=== PATIENT | female | born 1995 | race Two or more races ===

== ENCOUNTER 2018-09-09 11:25 | Emergency (ER) | payer BC ==
[2018-09-09 11:40] VITALS: BP 132/64
[2018-09-09 11:56] LABS: BILIRUBIN,URINE NEGATIVE (NEGATIVE); GLUCOSE, URINE (UA) NEGATIVE (NEGATIVE); KETONES,URINE (UA) NEGATIVE (NEGATIVE); LEUKOCYTE ESTERASE, URINE TRACE (NEGATIVE); NITRITE,URINE NEGATIVE (NEGATIVE); OCCULT BLOOD,URINE SMALL (NEGATIVE); PROTEIN,URINE NEGATIVE (NEGATIVE); UROBILINOGEN,URINE 0.2 (NORMAL) E.U./dL (NORMAL)
[2018-09-09 12:00] LABS: CLARITY,URINE CLEAR (CLEAR); HCG UR QUAL NEGATIVE
[2018-09-09 12:23] LABS: RBC,URINE 0-5 /HPF (0-5)
[2018-09-09] MEDS ORDERED: NITROFURANTOIN MACRO 100 MG CAPSULE PO STA (12:23)
[2018-09-09] MEDS ORDERED: PHENAZOPYRIDINE 100 MG TABLET PO STA (12:23)
[2018-09-09 12:24] LABS: BACTERIA,URINE Rare /HPF (None Seen); SQUAMOUS EPITHELIAL CELL,UR FEW Squamous (<= Few)
--- NOTE | 2018-09-09 12:26 | ED Physician Documentation ---
History of Present Illness - Stated complaint Stated Complaint: FEM - Chief complaint Chief Complaint: UTI - History obtained from History obtained from: Patient - History of Present Illness Timing: Today Pain level max: 4 Pain level now: 3 - Additonal information Additional information: 23-year-old female with dysuria, urinary frequency and low back pain. Started today. Feels similar to prior UTIs. Has not taken anything for this today. Worse with urination. Nothing makes it better. Patient is not , breast- feeding or trying to become . Review of Systems Constitutional: reports: Chills. denies: Fever Cardiac: denies: Chest pain / pressure Respiratory: denies: Cough GI: denies: Nausea, Vomiting, Diarrhea Skin: denies: Rash Musculoskeletal: denies: Neck pain, Back pain Neurologic: denies: Headache PD PAST MEDICAL HISTORY - Past Medical History Past Medical History: No - Past Surgical History Past Surgical History: No - Present Medications Home Medications: Ambulatory Orders Medication Instructions Recorded Confirmed Nitrofurantoin Monohyd/M-Cryst 100 mg PO BID #10 capsule 09/09/18 [Macrobid 100 mg Capsule] Phenazopyridine HCl [Pyridium] 200 mg PO TID PRN #6 tablet 09/09/18 - Allergies Allergies/Adverse Reactions: Allergies Allergy/AdvReac Type Severity Reaction Status Date / Time No Known Drug Allergies Allergy Verified 09/09/18 11:37 - Living Situation Living Situation: reports: With family Living Arrangement: reports: At home - Social History Does the pt smoke?: No Does the pt drink ETOH?: No Does the pt have substance abuse?: No - Family History Family history: reports: Non contributory PD ED PE NORMAL - Vitals Vital signs reviewed: Yes - General General: Alert and oriented X 3, No acute distress - HEENT HEENT: Moist mucous membranes - Neck Neck: Supple, no meningeal sign - Cardiac Cardiac: RRR - Respiratory Respiratory: No respiratory distress, Clear bilaterally - Abdomen Abdomen: Soft, Non tender, Non distended - Back Back: No CVA TTP - Derm Derm: Warm and dry - Neuro Neuro: Alert and oriented X 3 - Psych Psych: Normal mood, Normal affect Results - Vitals Vitals: Vital Signs - 24 hr 09/09/18 11:37 Temperature 36.7 C Heart Rate 70 Respiratory 15 Rate Blood Pressure 132/64 H O2 Saturation 100 Oxygen O2 Source Room air - Labs Labs: Laboratory Tests 09/09/18 11:49 Urine Color YELLOW Urine Clarity CLEAR Urine pH 7.0 Ur Specific [place] <=1.005 Urine Protein NEGATIVE Urine Glucose (UA) NEGATIVE Urine Ketones NEGATIVE Urine Occult Blood SMALL H Urine Nitrite NEGATIVE Urine Bilirubin NEGATIVE Urine Urobilinogen 0.2 (NORMAL) Ur Leukocyte Esterase TRACE H Urine RBC 0-5 Urine WBC 6-10 H Ur Squamous Epith Cells FEW Squamous Urine Bacteria Rare Ur Microscopic Review INDICATED Urine Culture Comments INDICATED Urine HCG, Qual NEGATIVE PD MEDICAL DECISION MAKING - ED course Complexity details: reviewed results, re-evaluated patient, considered differential, d/w patient ED course: 23-year-old female with a UTI. Will place on Macrobid. She is well-appearing, nontoxic. Afebrile. No pyelonephritis. No sepsis. Patient counseled regarding signs and symptoms for which I believe and urgent re-evaluation would be necessary. Patient with good understanding of and agreement to plan and is comfortable going home at this time This document was made in part using voice recognition software. While efforts are made to proofread this document, sound alike and grammatical errors may occur. Departure - Departure Disposition: Home, Self Care Clinical Impression: Urinary tract infection Qualifiers: Urinary tract infection type: acute cystitis Hematuria presence: without hematuria Qualified Code(s): N30.00 - Acute cystitis without hematuria Condition: Good Instructions: ED UTI Cystitis Female Follow-Up: your,doctor in 1 week if not better [Other] Prescriptions: Nitrofurantoin Monohyd/M-Cryst [Macrobid 100 mg Capsule] 100 mg PO BID #10 capsule Phenazopyridine HCl [Pyridium] 200 mg PO TID PRN #6 tablet PRN Reason: dysuria Comments: Take all antibiotics until gone. Return if you worsen. Follow-up with your doctor if you are not improved.
== END 2018-09-09 12:41 | disposition home or self-care (01) ==
LOC: ED 11:25
DX: N30.00 Acute cystitis without hematuria (principal)
CPT/HCPCS: 81001; 81025; 87086; 99283; 99284; A9270; 81003

== ENCOUNTER 2019-12-26 15:12 | Emergency (ER) | payer BC, OTHER ==
[2019-12-26] MEDS ORDERED: PROPARACAINE 0.5% OPHTH DROPS 15 ML EACHEYE STA (15:24)
--- NOTE | 2019-12-26 15:38 | ED Physician Documentation ---
PD HPI OPHTHO - Stated complaint Stated Complaint: LT EYE PX - Chief complaint Chief Complaint: Heent - History obtained from History obtained from: Patient - Additional information Additional information: Clipping her toenails about an hour ago and felt like a piece went into the eye lower down on the left. No visual deficit. She thinks she got it out. Review of Systems Constitutional: denies: Fever, Chills Eyes: reports: Photophobia (mild). denies: Loss of vision, Decreased vision Nose: denies: Rhinorrhea / runny nose PD PAST MEDICAL HISTORY - Past Medical History Past Medical History: No - Past Surgical History Past Surgical History: No - Present Medications Home Medications: Ambulatory Orders Medication Instructions Recorded Confirmed Nitrofurantoin Monohyd/M-Cryst 100 mg PO BID #10 capsule 09/09/18 [Macrobid 100 mg Capsule] Phenazopyridine HCl [Pyridium] 200 mg PO TID PRN #6 tablet 09/09/18 Erythromycin Base [Erythromycin 1 appful OP 5XD 7 Days #1 oint...g. 12/26/19 Ophthalmic Ointment] - Allergies Allergies/Adverse Reactions: Allergies Allergy/AdvReac Type Severity Reaction Status Date / Time No Known Drug Allergies Allergy Verified 12/26/19 15:17 - Social History Does the pt smoke?: No Smoking Status: Never smoker Does the pt drink ETOH?: No Does the pt have substance abuse?: No - Immunizations Immunizations are current?: Yes PD ED PE NORMAL - Vitals Vital signs reviewed: Yes - General General: Alert and oriented X 3, No acute distress, Well developed/nourished - HEENT HEENT: PERRL, EOMI, Other (No obvious foreign body, no fluorescein uptake) - Neuro Neuro: Alert and oriented X 3, Normal speech Results - Vitals Vitals: Vital Signs - 24 hr 12/26/19 15:17 Temperature 36.8 C Heart Rate 80 Respiratory 19 Rate Blood Pressure 120/66 O2 Saturation 100 Oxygen O2 Source Room air Departure - Departure Disposition: 01 Home, Self Care Clinical Impression: Eye foreign body Qualifiers: Encounter type: initial encounter Laterality: left Qualified Code(s): T15.92XA - Foreign body on external eye, part unspecified, left eye, initial encounter Condition: Good Record reviewed to determine appropriate education?: Yes Instructions: ED Eye Particle Conjunctiva FB Rslv Follow-Up: Ivan Collins MD [Provider Admit Priv/Credential] - Prescriptions: Erythromycin Base [Erythromycin Ophthalmic Ointment] 1 appful OP 5XD 7 Days #1 oint...g. Comments: Symptoms should be completely gone quickly, return or follow-up with an eye doctor if not.
[2019-12-26 15:48] VITALS: BP 114/64
== END 2019-12-26 15:50 | disposition home or self-care (01) ==
LOC: ED 15:12
DX: T15.92XA Foreign body on external eye, part unspecified, left eye, initial encounter (principal); X58.XXXA Exposure to other specified factors, initial encounter; Y93.E8 Activity, other personal hygiene
CPT/HCPCS: 99282; 99283; J3490

== ENCOUNTER 2020-01-13 19:22 | Emergency (ER) | payer OTHER ==
--- NOTE | 2020-01-13 19:47 | ED Physician Documentation ---
PD HPI CHEST PAIN - Stated complaint Stated Complaint: CP,DIZZY,RODRIGUEZ - Chief complaint Chief Complaint: Cardiac - History obtained from History obtained from: Patient - Additional information Additional information: 24-year-old woman has a history of chest pain issues, actually had a negative stress test about 3 years ago. She has been diagnosed with an arrhythmia but she does not know the details of the type but was led to believe that it was benign. She was eating tonight and developed tinnitus in both ears followed by vertigo, followed by sharp left upper anterior chest pain nonradiating with very mild shortness of breath. No pedal edema or calf pain. She is not on control. No recent travel. No cough. No fever. Review of Systems Ten Systems: 10 systems reviewed and negative Constitutional: denies: Fever, Chills, Fatigue Cardiac: denies: Pedal edema, Calf pain Respiratory: denies: Hemoptysis, Wheezing PD PAST MEDICAL HISTORY - Past Surgical History Past Surgical History: No - Present Medications Home Medications: Ambulatory Orders Medication Instructions Recorded Confirmed Multivitamin [Multivitamins] 1 tab PO DAILY 01/13/20 01/13/20 Omeprazole 20 mg PO DAILY 01/13/20 01/13/20 - Allergies Allergies/Adverse Reactions: Allergies Allergy/AdvReac Type Severity Reaction Status Date / Time No Known Drug Allergies Allergy Verified 01/13/20 19:27 - Social History Does the pt smoke?: No Smoking Status: Never smoker Does the pt drink ETOH?: No Does the pt have substance abuse?: No - Immunizations Immunizations are current?: Yes PD ED PE NORMAL - Vitals Vital signs reviewed: Yes - General General: Alert and oriented X 3, No acute distress, Well developed/nourished - HEENT HEENT: PERRL, EOMI, Ears normal (With sclerosis of the TMs) - Neck Neck: Supple, no meningeal sign, No bony TTP - Cardiac Cardiac: RRR, No murmur - Respiratory Respiratory: No respiratory distress, Clear bilaterally - Abdomen Abdomen: Non tender - Extremities Extremities: No edema, No calf tenderness / cord - Neuro Neuro: Alert and oriented X 3, Normal speech Results - Vitals Vitals: Vital Signs - 24 hr 01/13/20 01/13/20 01/13/20 19:27 19:39 20:02 Temperature 36.6 C 36.7 C 36.6 C Heart Rate 89 95 80 Respiratory 20 21 14 Rate Blood Pressure 147/76 H 138/125 H 132/80 H O2 Saturation 100 98 100 01/13/20 01/13/20 01/13/20 20:30 21:00 21:30 Temperature 36.8 C 36.7 C 36.7 C Heart Rate 68 72 75 Respiratory 14 16 12 Rate Blood Pressure 119/72 120/70 123/68 O2 Saturation 100 100 100 Oxygen O2 Source Room air - EKG (time done) 1927 Rate: Rate (enter#) (89) Rhythm: NSR [place]: Normal Intervals: Normal [place] QRS: Normal Ischemia: Normal ST segments Computer interpretation: Agree with computer - Labs Labs: Laboratory Tests 01/13/20 01/13/20 01/13/20 20:08 20:08 20:08 WBC 9.3 RBC 4.31 Hgb 13.3 Hct 40.3 MCV 93.5 MCH 30.9 MCHC 33.0 RDW 12.6 Plt Count 199 MPV 12.2 H Neut # (Auto) 3.8 Lymph # (Auto) 4.9 H [place] # (Auto) 0.5 Eos # (Auto) 0.1 Baso # (Auto) 0.0 Absolute Nucleated RBC 0.00 Nucleated RBC % 0.0 Sodium 139 Potassium 3.2 L Chloride 100 L Carbon Dioxide 27 Anion Gap 12.0 BUN 16 Creatinine 0.7 Estimated GFR (MDRD) 105 Glucose 110 H Calcium 9.5 Magnesium 2.1 Total Bilirubin 0.4 AST 31 ALT 35 Alkaline Phosphatase 55 Troponin I High Sens < 2.3 L Total Protein 7.9 Albumin 4.5 Globulin 3.4 Albumin/Globulin Ratio 1.3 Lipase 50 PD MEDICAL DECISION MAKING - ED course ED course: 24-year-old woman with tinnitus followed by vertigo followed by chest pain. It sounds like she has had a thorough work-up given her young age for recurrent issues with chest pain in the past. No physical findings here today. Normal neurologic exam. Departure - Departure Disposition: Home, Self Care Clinical Impression: Chest pain Qualifiers: Chest pain type: unspecified Qualified Code(s): R07.9 - Chest pain, unspecified Tinnitus Qualifiers: Laterality: bilateral Qualified Code(s): H93.13 - Tinnitus, bilateral Condition: Good Record reviewed to determine appropriate education?: Yes Instructions: ED Chest Pain NonCardiac Comments: The cause of your symptoms tonight is not completely clear but no serious etiology is identified. Return if worsening and follow-up with your primary care physician. Your potassium here was mildly low and we gave you a potassium supplement.
[2020-01-13 20:51] LABS: BASOPHILS % (AUTO) 0.2 %; EOSINOPHILS # (AUTO) 0.1 10^3/uL (0.0-0.7); EOSINOPHILS % (AUTO) 0.8 %; HGB - HEMOGLOBIN 13.3 g/dL (12.0-16.0); LYMPHOCYTES # (AUTO) 4.9 10^3/uL (1.5-3.5); LYMPHOCYTES % (AUTO) 52.9 %; MEAN CORPUSCULAR HEMOGLOBIN 30.9 pg (27.0-31.0); MEAN CORPUSCULAR VOLUME 93.5 fL (81.0-99.0); MEAN PLATELET VOLUME 12.2 fL (7.9-10.8); MONOCYTES # (AUTO) 0.5 10^3/uL (0.0-1.0); MONOCYTES % (AUTO) 5.4 %; NEUTROPHILS # (AUTO) 3.8 10^3/uL (1.5-6.6); NEUTROPHILS % (AUTO) 40.5 %; PLT - PLATELET COUNT 199 10^3/uL (130-450); RED BLOOD COUNT 4.31 10^6/uL (4.20-5.40); RED CELL DISTRIBUTION WIDTH 12.6 % (12.0-15.0); WHITE BLOOD COUNT 9.3 x10^3/uL (4.8-10.8)
[2020-01-13 21:05] LABS: ALBUMIN 4.5 g/dL (3.2-5.5); ALBUMIN/GLOBULIN RATIO 1.3 (1.0-2.2); BILIRUBIN,TOTAL 0.4 mg/dL (0.2-1.0); CALCIUM 9.5 mg/dL (8.5-10.3); CREATININE 0.7 mg/dL (0.4-1.0); MAGNESIUM 2.1 mg/dL (1.7-2.8); TOTAL PROTEIN 7.9 g/dL (6.7-8.2)
[2020-01-13] MEDS ORDERED: POTASSIUM CHLORIDE 20 MEQ TABLET PO STA (21:28)
[2020-01-13 22:11] VITALS: BP 117/68
== END 2020-01-13 22:12 | disposition home or self-care (01) ==
LOC: ED 19:22
DX: R07.9 Chest pain, unspecified (principal); H93.13 Tinnitus, bilateral; R42 Dizziness and giddiness; E87.6 Hypokalemia
CPT/HCPCS: 36415; 80053; 83690; 83735; 84484; 85025; 93005; 99284; A9270